=== PATIENT | female | born 1970 | race Caucasian/White ===

== ENCOUNTER 2017-06-23 14:45 | Emergency (ER) | payer OTHER ==
[~2017-06-23] VITALS: Ht 172.7 cm; Wt 113.4 kg
[2017-06-23] MEDS ORDERED: GABAPENTIN 100100 MG PO (15:01)
[2017-06-23] MEDS ORDERED: VICODIN 5-3001 EACH PO (15:02)
[2017-06-23] MEDS ORDERED: ATENOLOL 50MG T50 M1 PO (15:02)
[2017-06-23] MEDS ORDERED: VALIUM5 MG PO (15:02)
[2017-06-23] MEDS ORDERED: NORCO 5-325 TA1 EAC1 PO (15:54)
[2017-06-23 16:49] VITALS: BP 167/104
== END 2017-06-23 16:51 | disposition home or self-care (01) ==
LOC: M.ERS 14:45
DX: S40.021A Contusion of right upper arm, initial encounter (principal); G89.29 Other chronic pain; M54.9 Dorsalgia, unspecified; F41.0 Panic disorder [episodic paroxysmal anxiety]; I10 Essential (primary) hypertension; W01.0XXA Fall on same level from slipping, tripping and stumbling without subsequent striking against object, initial encounter; Y93.89 Activity, other specified; Y92.89 Other specified places as the place of occurrence of the external cause; Y99.8 Other external cause status